=== PATIENT | male | born 1990 | race Caucasian/White ===

== ENCOUNTER 2019-01-14 21:17 | Inpatient (IN) | payer BC ==
[~2019-01-14] VITALS: Ht 167.6 cm; Wt 136.6 kg
--- NOTE | 2019-01-14 21:42 | NUR ---
PT IN ED FOR N/V/D SINCE LAST NIGHT. STS NO BLOOD SEEN IN DIARRHEA. REPORTS ATE BURRITO FROM EATERY YESTERDAY BUT NO ONE ELSE BECAME SICK. STS NO ABX USE. REPORTS DRINK ALCOHOL APPROX X4 A WEEK. MSE BY DR MAXWELL. STS NO ABD PAIN AT THIS TIME. PT AAO4, RESP E/U, NO DISTRESS. S/O AT BEDSIDE.
[2019-01-14 22:17] LABS: BASOPHIL % 0.4 % (0-2); PLATELET COUNT 279 x10^3mcL (130-400); RED CELL DISTRIBUTION WIDTH 13.7 % (11.5-14.5)
--- NOTE | 2019-01-14 22:30 | NUR ---
STOOL SPECIMEN SENT TO LAB.
[2019-01-14 22:32] LABS: ALBUMIN 3.5 g/dL (3.4-5.0); ALKALINE PHOSPHATASE 96 U/L (46-116); ALT/SGPT 63 U/L (16-63); AST/SGOT 25 U/L (15-37); BILIRUBIN TOTAL 0.43 mg/dL (0.20-1.00); CALCIUM 8.9 mg/dL (8.5-10.1); CARBON DIOXIDE 24.7 mmol/L (21-32); CHLORIDE SERUM 98 mmol/L (98-107); CREATININE SERUM 1.1 mg/dL (0.7-1.3); GFR1 > 60 mL/min; GLUCOSE SERUM 113 mg/dL (74-106); LIPASE 138 IU/L (73-393); SODIUM SERUM 136 mmol/L (136-145); TOTAL PROTEIN, SERUM 8.7 g/dL (6.4-8.2)
--- NOTE | 2019-01-14 22:50 | NUR ---
PT MEDICATED FOR FEVER. PT AAO4, RESP E/U, NO DISTRESS.
--- NOTE | 2019-01-14 23:40 | NUR ---
PT IN [facility] IN POSITION OF COMFORT. RESP E/U, NO DISTRESS. S/O STILL AT BEDSIDE.
--- NOTE | 2019-01-15 00:20 | NUR ---
REPORT GIVEN TO MEREDITH ROSA/JACKSON TO ASSUME CARE.
[2019-01-15 00:49] LABS: CHOLESTEROL/HDL RATIO 4.4; MAGNESIUM 1.6 mg/dL (1.8-2.4); PHOSPHOROUS 2.9 mg/dL (2.5-4.9)
--- NOTE | 2019-01-15 00:57 | NUR ---
RECEIVED PT FROM ED VIA [facility], CAME IN DUE TO ABDOMINAL PAIN, VOMITING AND DIARRHEA SINCE YESTERDAY. AAOX4. DENIES HEADACHE/DIZZINESS. NO SOB NOTED, LUNG SOUNDS CTA. DENIES CHEST PAIN/PRESSURE, SINUS TACHYCARDIA ON THE MONITOR, HR AT 115. C/O 5/10 THROBBING MID ABDOMINAL PAIN, HAD X2 EPISODES OF VOMITING TODAY AND >10 EPISODES OF WATERY STOOLS SINCE YESTERDAY. IV SITE PATENT AND INTACT. RECEIVED PT FROM ED W/ TK AND NS ONGING. SIDE RAILS UPX2. CALL LIGHT ON REACH. AT BEDSIDE. PRIMARY NURSE JACKSON AT BEDSIDE FOR CONTINUITY OF CARE
[2019-01-15 01:16] VITALS: BP 126/78
[2019-01-15 01:22] VITALS: Ht 167.6 cm; Wt 136.6 kg
--- NOTE | 2019-01-15 01:28 | NUR ---
BEDSIDE HANDS OFF RECEIVED FROM RESOURCE NURSE, PATIENT ACQUIANTED TO BEDSIDE EQUIPMENT AND UNIT POLICIES. CALL LIGHT PLACED IN REACH. SAFETY PRECAUTIONS INITIATED. WILL CONTINUE TO MONITOR.
--- NOTE | 2019-01-15 02:04 | NUR ---
STARTED ON IVF OF NS AT 100 ML/HR, REGULATED ON A PUMP. APPLIED SCD TO BLE AND INFORMED ABOUT ITS PURPOSE ,IMPORTANCE BEING FOR DVT PROPHYLAXIS. WILL CONTINUE TO MONITOR.
--- NOTE | 2019-01-15 02:06 | NUR ---
PATIENT RECEIVED EARLIER WITH A FULL BAG OF LEVAQUIN ABX,REGULATED ON A PUMP AT A RATE OF 100MLHR TO RAC , SITE FLUSHED WELL,SECURED TAPE.
--- NOTE | 2019-01-15 03:09 | NUR ---
MAG OXIDE 400 MG 1 TAB PO GIVEN FOR MAG LEVEL 1.6. PATIENT INFORMED ABOUT ITS PURPOSE PRIOR. TOOK PILL WELL.
[2019-01-15 06:35] VITALS: BP 113/71
--- NOTE | 2019-01-15 06:50 | NUR ---
PATIENT CALLED NURSE SERVANDO THIS AM AND STATED FEELING WARM AND THINKS HE IS HAVING TEMP, WAS CHECKED WAS 103.4 TYLENOL GIVEN, COOLING MEASURES INITIATED, REMOVED EXCESS BLANKET ,AC TURNED ON. LATEST TEMP 99.5. HAD X2 LOOSE WATERY STOOL SINCE ARRIVAL TO THE FLOOR, IV SITE NO SIGN OF INFILTRATION. PATIENT WITH ORDER FOR STOOL C-DII BLUE CONTAINER PLACED IN TOILET AND INSTRUCTED TOOL POLISHING MACHINE OPERATOR TO ENDORSE TO INCOMING TOOL POLISHING MACHINE OPERATOR AND ALSO INFORMED PATIENT ABOUT COLLECTION. WILL ENDORSE CONTINUITY OF CARE TO INCOMING NURSE.
[2019-01-15 07:10] LABS: CALCIUM 8.1 mg/dL (8.5-10.1); CARBON DIOXIDE 21.9 mmol/L (21-32); CHLORIDE SERUM 102 mmol/L (98-107); CREATININE SERUM 0.8 mg/dL (0.7-1.3); GFR1 > 60 mL/min; GLUCOSE SERUM 126 mg/dL (74-106); MAGNESIUM 1.4 mg/dL (1.8-2.4); PHOSPHOROUS 2.7 mg/dL (2.5-4.9); POTASSIUM SERUM 3.3 mmol/L (3.5-5.1); SODIUM SERUM 136 mmol/L (136-145)
--- NOTE | 2019-01-15 07:29 | NUR ---
BEDSIDE HANDS OFF AND INTRODUCTION PERFORMED WITH INCOMING NURSE DEVONTE RAMIREZ.
[2019-01-15 08:12] LABS: PLATELET COUNT 261 x10^3mcL (130-400); RED CELL DISTRIBUTION WIDTH 13.9 % (11.5-14.5)
[2019-01-15 09:42] VITALS: BP 116/69
[2019-01-15 10:38] LABS: BAND NEUTROPHIL 3 % (0-10); BASOPHIL 0 % (0-2); MONOCYTE 2 % (0-7); SEGMENTED NEUTROPHILS 88 % (37-75)
[2019-01-15 10:39] LABS: PLATELET MORPHOLOGY LARGE PLATELET SEEN; rbc morphology (normal/abnorm) ABNORMAL (NORMAL)
[2019-01-15 13:15] LABS: AMPHETAMINE QUAL UR NONE DETECTED (See below)
[2019-01-15 13:30] VITALS: BP 133/84
[2019-01-15 13:31] LABS: microscopic required? YES; urine erythrocyte NEGATIVE (NEGATIVE)
[2019-01-15 16:42] VITALS: BP 110/64
--- NOTE | 2019-01-15 20:22 | NUR ---
PT RECIEVED AAO REG RESP NO SOB V/S STABLE,IV INFUSING WELL WITH THE SITE PATENT AND INTACT,KEPT CLEAN AND DRY TO TOUCH,BED IN THE LOW POSITION AND LOCKED,CALL LIGHT EASY REACHED AND WILL CONTINUE TO MONITOR.
[2019-01-15 20:48] VITALS: BP 113/72
[2019-01-16 05:35] VITALS: BP 111/69
--- NOTE | 2019-01-16 06:12 | NUR ---
PT HAD A RESTING NIGHT AT THIS TIME,WILL CONTINUE TO MONITOR.
--- NOTE | 2019-01-16 06:14 | NUR ---
PT HAD A RESTING NIGHT NO CNAHE AT THIS TIME,WILL CONTINUE TO MONITOR.
[2019-01-16 06:28] LABS: BASOPHIL % 0.3 % (0-2); PLATELET COUNT 239 x10^3mcL (130-400); RED CELL DISTRIBUTION WIDTH 14.3 % (11.5-14.5)
[2019-01-16 06:37] LABS: CALCIUM 8.7 mg/dL (8.5-10.1); CARBON DIOXIDE 27.1 mmol/L (21-32); CHLORIDE SERUM 105 mmol/L (98-107); CREATININE SERUM 0.8 mg/dL (0.7-1.3); GFR1 > 60 mL/min; GLUCOSE SERUM 98 mg/dL (74-106); MAGNESIUM 1.7 mg/dL (1.8-2.4); PHOSPHOROUS 3.6 mg/dL (2.5-4.9); POTASSIUM SERUM 3.4 mmol/L (3.5-5.1); SODIUM SERUM 139 mmol/L (136-145)
--- NOTE | 2019-01-16 08:15 | NUR ---
PT RESTING AT THIS TIMEIV INFUSING WELL WITH TEHSITE PATENT AND INTACT,KEPT CLEAN AND DRY TO TOUCH,BED IN THE LOW POSITION AND LOCKED,CALL LIGHGT EASY REACHED AND WILL CONTINUE TO MONITOR.
[2019-01-16 09:35] VITALS: BP 103/53
[2019-01-16] MEDS ORDERED: BD LACTINEX1.4 MG PO (10:53)
[2019-01-16] MEDS ORDERED: GAS RELIEF80 MG PO (11:02)
[2019-01-16] MEDS ORDERED: BAC PO (11:05)
--- NOTE | 2019-01-16 11:15 | NUR ---
RECEIVED BEDSIDE REPORT FROM MEREDITH MOLINA. PT IN BED, RESTING COMFORTABLY. NO S/S RESPIRATORY DISTRESS, PAIN, OR DISCOMFORT NOTED. WILL CONTINUE TO MONITOR.
[2019-01-16 13:12] VITALS: BP 103/53
--- NOTE | 2019-01-16 13:45 | NUR ---
PT GIVEN DISCHARGE PACKET. DISCUSSED CURRENT STAY, INCLUDING MEDS, LABS, AND TEACHINGS RE: DIARRHEA, FOOD CHOISES, VIRAL GASTROENTERITIS, EXERCISE. ALL D/C FORMS SIGNED. ALL QUESTIONS WERE ADDRESSED AND PT VERBALIZED UNDERSTANDING. ALL ID BANDS REMOVED, AND IV REMOVED FROM RAC 20G, CATH TIP INTACT, NO S/S INFECTION OR BLEEDING. PT THEN AMBULATED DOWN TO LOBBY, ACCOMPANIED BY MAT WORKER AND PT'S MOTHER. PT A/A/O X 4, CALM, COOPERATIVE. NO RESPIRATORY DISTRESS, PAIN, OR DISCOMFORT NOTED. AMBULATED W/O GAIT OR BALANCE IMPAIRMENT.
== END 2019-01-16 13:45 | disposition home or self-care (01) | DRG 872 ==
LOC: ED 21:17 → DU 01-15 00:02 → MU 01-15 00:02 → DU 01-15 00:58 → MU 01-15 11:15
PROVIDERS: Emergency Medicine; ADMIT Internal Medicine
DX: A41.9 Sepsis, unspecified organism (principal); A09 Infectious gastroenteritis and colitis, unspecified; Z68.42 Body mass index [BMI] 45.0-49.9, adult; E87.6 Hypokalemia; E83.42 Hypomagnesemia; R73.9 Hyperglycemia, unspecified; E66.01 Morbid (severe) obesity due to excess calories
CPT/HCPCS: 87046; 87046-59; G0378; J1956; J2405; J7030; Q0092

== ENCOUNTER 2019-02-13 15:00 | Emergency (ER) | payer BC, OTHER ==
[~2019-02-13] VITALS: Ht 167.6 cm; Wt 135.2 kg
[~2019-02-13 15:00] MED LIST: BAC PO; BD LACTINEX1.4 MG PO; GAS RELIEF80 MG PO
[2019-02-13 15:04] VITALS: BP 155/97; Ht 167.6 cm; Wt 135.2 kg
== END 2019-02-13 16:25 | disposition home or self-care (01) ==
LOC: ED 15:00
DX: S93.402A Sprain of unspecified ligament of left ankle, initial encounter (principal); W22.8XXA Striking against or struck by other objects, initial encounter; Y93.89 Activity, other specified; Y92.89 Other specified places as the place of occurrence of the external cause; Y99.8 Other external cause status

== ENCOUNTER 2019-03-04 21:18 | Emergency (ER) | payer BC, OTHER ==
[~2019-03-04] VITALS: Ht 167.6 cm; Wt 131.1 kg
[2019-03-04 21:23] VITALS: Ht 167.6 cm; Wt 131.1 kg
[2019-03-04 23:11] LABS: BASOPHIL % 0.7 % (0-2); PLATELET COUNT 388 x10^3mcL (130-400); RED CELL DISTRIBUTION WIDTH 13.7 % (11.5-14.5)
[2019-03-04 23:26] LABS: CALCIUM 9.1 mg/dL (8.5-10.1); CARBON DIOXIDE 32.6 mmol/L (21-32); CHLORIDE SERUM 101 mmol/L (98-107); CREATININE SERUM 0.8 mg/dL (0.7-1.3); GFR1 > 60 mL/min; GLUCOSE SERUM 100 mg/dL (74-106); POTASSIUM SERUM 3.6 mmol/L (3.5-5.1); SODIUM SERUM 142 mmol/L (136-145)
[2019-03-04 23:37] LABS: ALBUMIN 3.4 g/dL (3.4-5.0); ALKALINE PHOSPHATASE 110 U/L (46-116); ALT/SGPT 52 U/L (16-63); AST/SGOT 32 U/L (15-37); BILIRUBIN TOTAL 0.25 mg/dL (0.20-1.00); CHOLESTEROL 178 mg/dL (<200); HDL CHOLESTEROL 41 mg/dL (40-60); MAGNESIUM 1.6 mg/dL (1.8-2.4); T4(THYROXINE) 10.7 ug/dL (4.7-13.3); TOTAL PROTEIN, SERUM 7.8 g/dL (6.4-8.2)
[2019-03-04 23:38] LABS: AMPHETAMINE QUAL UR NONE DETECTED (See below); UA SPECIFIC GRAVITY >=1.030 (1.005-1.035); microscopic required? YES; urine erythrocyte TRACE (NEGATIVE)
[2019-03-05 00:21] VITALS: BP 130/85
== END 2019-03-05 00:21 | disposition home or self-care (01) ==
LOC: ED 21:18
PROVIDERS: Emergency Medicine
DX: R53.1 Weakness (principal); I10 Essential (primary) hypertension; E66.01 Morbid (severe) obesity due to excess calories; Z68.42 Body mass index [BMI] 45.0-49.9, adult
CPT/HCPCS: 36415; 82962; G0480; Q0092

== ENCOUNTER 2019-06-01 02:38 | Emergency (ER) | payer OTHER ==
[~2019-06-01] VITALS: Ht 167.6 cm; Wt 136.1 kg
[2019-06-01 02:46] VITALS: Ht 167.6 cm; Wt 136.1 kg
[2019-06-01 06:15] VITALS: BP 140/100
== END 2019-06-01 06:15 | disposition home or self-care (01) ==
LOC: ED 02:38
DX: K60.2 Anal fissure, unspecified (principal)